=== PATIENT | male | born 1950 | race Caucasian/White ===

== ENCOUNTER 2019-11-06 01:00 | Emergency (ER) | payer MEDICARE, OTHER ==
[~2019-11-06] VITALS: Ht 190.5 cm; Wt 129.6 kg
[2019-11-06 01:41] LABS: HEMATOCRIT 44.1 % (41-53); HEMOGLOBIN 14.3 g/dL (13.5-17.5); LYMPHOCYTES # (AUTO) 1.3 K/uL (1.0-4.8); LYMPHOCYTES % (AUTO) 17.7 % (22.0-44.0); MEAN CORPUSCULAR HEMOGLOBIN 30.4 pg (26.0-34.0); MEAN CORPUSCULAR HGB CONC 32.4 G/dL (31.0-37.0); MEAN CORPUSCULAR VOLUME 94 fL (80-100); MONOCYTES # (AUTO) 0.6 K/uL (0.1-1.0); NEUTROPHILS % (AUTO) 65.3 % (40.0-70.0); PLATELET COUNT (AUTO) 237 K/uL (150-450); RED CELL DISTRIBUTION WIDTH 13.4 % (11.5-14.5)
[2019-11-06] MEDS ORDERED: QUET25TA PO (01:46)
[2019-11-06] MEDS ORDERED: HEPA500018 SQ (01:46)
[2019-11-06] MEDS ORDERED: GABA-1216 PO (01:46)
[2019-11-06] MEDS ORDERED: ASPI-728 PO (01:46)
[2019-11-06] MEDS ORDERED: ROPI2TAB26 PO (01:46)
[2019-11-06] MEDS ORDERED: FINA-27 PO (01:46)
[2019-11-06] MEDS ORDERED: CARB1CAP PO (01:46)
[2019-11-06] MEDS ORDERED: FLUO-191 PO (01:46)
[2019-11-06] MEDS ORDERED: AMLO-257 PO (01:46)
[2019-11-06] MEDS ORDERED: TRAZ-257 PO (01:46)
[2019-11-06] MEDS ORDERED: CLON0.1T83 PO (01:46)
[2019-11-06] MEDS ORDERED: TROS20TA3 PO (01:46)
[2019-11-06 01:47] LABS: ANION GAP 3 mmol/L (8-16); CARBON DIOXIDE 30 mmol/L (22-29); CHLORIDE 103 mmol/L (98-107); CREATININE 1.12 mg/dL (0.60-1.30); GLUCOSE,RANDOM 116 mg/dL (70-110); POTASSIUM 4.1 mmol/L (3.5-5.1); SODIUM SERUM 136 mmol/L (136-145); UREA NITROGEN, BLOOD 24 mg/dL (7-18)
[2019-11-06 01:54] LABS: ALANINE AMINOTRANSFERASE 31 U/L (12-78); ALBUMIN 3.7 g/dL (3.4-5.0); ALKALINE PHOSPHATASE 76 U/L (46-116); ASPARTATE AMINOTRANSFERASE 25 U/L (15-37); BILIRUBIN,TOTAL 0.5 mg/dL (0.1-1.0); GLOMERULAR FILTR. RATE CALC > 60 mL/min (>60); TOTAL PROTEIN, SERUM 6.9 g/dL (6.4-8.2)
[2019-11-06 05:29] LABS: APPEARANCE,URINE CLEAR (CLEAR); BILIRUBIN,URINE NEGATIVE (NEGATIVE); GLUCOSE, URINE (UA) NEGATIVE (NEGATIVE); KETONES,URINE TRACE mg/dL (NEGATIVE); LEUKOCYTE ESTERASE ,URINE NEGATIVE (NEGATIVE); NITRATE,URINE NEGATIVE (NEGATIVE); OCCULT BLOOD,URINE NEGATIVE (NEGATIVE); PROTEIN,URINE NEGATIVE (NEGATIVE)
[2019-11-06 05:35] LABS: AMPHET/METH SCREEN,URINE NEGATIVE (NEGATIVE); BARBITURATE SCREEN, URINE NEGATIVE (NEGATIVE); BENZODIAZEPINES SCREEN,URINE NEGATIVE (NEGATIVE); CANNABINOID SCREEN,URINE NEGATIVE (NEGATIVE); COCAINE SCREEN,URINE NEGATIVE (NEGATIVE); METHADONE SCREEN, URINE NEGATIVE (NEGATIVE); OPIATE SCREEN,URINE NEGATIVE (NEGATIVE)
[2019-11-06 05:37] LABS: PHENCYCLIDINE SCREEN,URINE NEGATIVE (NEGATIVE)
[2019-11-06 11:55] VITALS: BP 141/81
== END 2019-11-06 12:46 | disposition home or self-care (01) ==
LOC: EMS 01:00
DX: R45.1 Restlessness and agitation (principal); F03.90 Unspecified dementia, unspecified severity, without behavioral disturbance, psychotic disturbance, mood disturbance, and anxiety; F41.9 Anxiety disorder, unspecified; F32.9 Major depressive disorder, single episode, unspecified; I10 Essential (primary) hypertension; Z79.82 Long term (current) use of aspirin; Z79.899 Other long term (current) drug therapy
CPT/HCPCS: 36415; 80053; 80307; 81003; 85025; 99285; G0480

== ENCOUNTER 2020-02-03 13:00 | Emergency (ER) | payer MEDICARE ==
[~2020-02-03] VITALS: Ht 188 cm; Wt 113.6 kg
[~2020-02-03 13:00] MED LIST: AMLO-257 PO; ASPI-728 PO; CARB1CAP PO; CLON0.1T83 PO; FINA-27 PO; FLUO-191 PO; GABA-1216 PO; HEPA500018 SQ; QUET25TA PO; ROPI2TAB26 PO; TRAZ-257 PO; TROS20TA3 PO
[2020-02-03] MEDS ORDERED: OMEP20 PO (13:30)
[2020-02-03 13:45] VITALS: BP 144/77
== END 2020-02-03 17:05 | disposition home or self-care (01) ==
LOC: EMS 13:07
DX: F32.9 Major depressive disorder, single episode, unspecified (principal); F03.90 Unspecified dementia, unspecified severity, without behavioral disturbance, psychotic disturbance, mood disturbance, and anxiety; I10 Essential (primary) hypertension
CPT/HCPCS: Z7502